=== PATIENT | male | born 1965 | race African-American/Black ===

== ENCOUNTER 2018-05-19 08:32 | Inpatient (IN) | payer OTHER ==
[2018-05-19 09:04] VITALS: BMI 24.8
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
[2018-05-19] MEDS ORDERED: MAGNESIUM CITRATE 300 ML BOTTLE PO PRN (11:04)
[2018-05-19] MEDS ORDERED: MAG HYDROX/AL HYDROX/SIMETH 30 ML UNIT-DOSE CUP PO PRN (11:04)
[2018-05-19] MEDS ORDERED: NICOTINE POLACRILEX 2 MG GUM BUC PRN (11:04)
[2018-05-19] MEDS ORDERED: IBUPROFEN 400 MG TABLET (FP) PO PRN (11:04)
[2018-05-19] MEDS ORDERED: ACETAMINOPHEN 325 MG TABLET (FP) PO PRN (11:04)
[2018-05-19] MEDS ORDERED: MENTHOL/PHENOL 1 EACH UD MM PRN (11:04)
[2018-05-19] MEDS ORDERED: guaiFENesin/D-METHORPHAN HB 10 ML UNIT-DOSE CUPS PO PRN (11:04)
[2018-05-19] MEDS ORDERED: MAGNESIUM HYDROX 2400MG/30ML ORAL SUSPENSION 30 ML CUP PO PRN (11:04)
[2018-05-19] MEDS ORDERED: ALBUTEROL SO4 8 GM HFA INHALER IH PRN (11:07)
[2018-05-19] MEDS ORDERED: ALBUTEROL SO4 0.083% IH SOL 2.5 MG/3 ML VIAL.NEB. NEB PRN (11:09)
[2018-05-19] MEDS: diazePAM 5 MG TABLET PO PRN ×2 (12:37→16:30)
[2018-05-19] MEDS: predniSONE 20 MG TABLET (UD) PO SCH (12:40)
[2018-05-19] MEDS: ALBUTEROL SO4 8 GM HFA INHALER IH PRN ×2 (12:41→20:42)
[2018-05-19] MEDS: diazePAM 5 MG TABLET PO SCH ×2 (15:03→22:18)
[2018-05-19] MEDS: MELATONIN 5 MG TABLETS PO PRN (22:18)
[2018-05-19] MEDS: THIAMINE HCL 100 MG TABLET (FP) PO SCH (22:18)
[2018-05-19] MEDS: P-EPHED 60MG/TRIPROLIDI 2.5MG TABLET PO PRN (23:18)
[2018-05-20] MEDS: diazePAM 5 MG TABLET PO SCH ×3 (06:09→22:11)
[2018-05-20] MEDS: predniSONE 20 MG TABLET (UD) PO SCH (09:13)
[2018-05-20] MEDS: PRENATAL VITAMINS W/ FOLIC ACID TABLET (FP) PO SCH (09:14)
[2018-05-20] MEDS: AZITHROMYCIN 250 MG TABLET PO SCH (09:14)
[2018-05-20 10:17] LABS: HEMATOCRIT 42.5 % (35.4-49); HEMOGLOBIN 13.8 GM/dL (11.7-16.9); MCH 32.9 pg (25.7-33.7); MCHC 32.4 g/dl (32.0-35.9); MEAN CELL VOLUME 101.3 fl (80-96); MEAN PLT VOLUME 7.7 fl (7.5-11.1); PLATELET COUNT 291 K/MM3 (134-434); RDW 13.7 % (11.9-15.9); WHITE BLOOD COUNT 7.1 K/mm3 (4.0-10.0)
[2018-05-20 11:07] LABS: ALBUMIN 4.1 g/dl (3.4-5.0); ALK PHOS 86 U/L (45-117); ANION GAP 8 MMOL/L (8-16); BILIRUBIN,TOTAL 1.4 mg/dL (0.2-1); BLOOD UREA NITROGEN 18 mg/dL (7-18); CHLORIDE 103 mmol/L (98-107); CO2 29 mmol/L (21-32); CREATININE 1.1 mg/dL (0.55-1.3); GLUCOSE,RANDOM 95 mg/dL (74-106); POTASSIUM 4.1 mmol/L (3.5-5.1); SGOT/AST 34 U/L (15-37); SGPT/ALT 33 U/L (13-61); SODIUM 140 mmol/L (136-145); TOT PROT 7.6 g/dl (6.4-8.2)
--- NOTE | 2018-05-20 11:54 | PN ---
S CIWA - CIWA Score Nausea/Vomitin-No Nausea/No Vomiting Muscle Tremors: 3 Anxiety: 4-Mod. Anxious/Guarded Agitation: 3 Paroxysmal Sweats: 3 Orientation: 0-Oriented Tacttile Disturbances: 0-None Auditory Disturbances: 0-None Visual Disturbances: 0-None Headache: 0-None Present CIWA-Ar Total Score: 13 BHS Progress Note (SOAP) Subjective: ANXIETY, COLD SWEATS, INTERMITTENT SLEEP. Objective: 05/20/18 11:54 Vital Signs 05/20/18 05/20/18 06:07 09:52 Temperature 97.7 F 98.7 F Pulse Rate 61 69 Respiratory 18 18 Rate Blood Pressure 138/79 109/67 Laboratory Tests 05/19/18 05/20/18 05/20/18 12:30 05:50 05:50 WBC 7.1 RBC 4.20 Hgb 13.8 Hct 42.5 MCV 101.3 H MCH 32.9 MCHC 32.4 RDW 13.7 Plt Count 291 D MPV 7.7 Sodium 140 Potassium 4.1 Chloride 103 Carbon Dioxide 29 Anion Gap 8 BUN 18 Creatinine 1.1 Creat Clearance w eGFR > 60 Random Glucose 95 Calcium 9.0 Total Bilirubin 1.4 H AST 34 ALT 33 Alkaline Phosphatase 86 Total Protein 7.6 Albumin 4.1 RPR Titer HIV 1&2 Antibody Screen Negative HIV P24 Antigen Negative 05/20/18 05:50 WBC RBC Hgb Hct MCV MCH MCHC RDW Plt Count MPV Sodium Potassium Chloride Carbon Dioxide Anion Gap BUN Creatinine Creat Clearance w eGFR Random Glucose Calcium Total Bilirubin AST ALT Alkaline Phosphatase Total Protein Albumin RPR Titer Nonreactive HIV 1&2 Antibody Screen HIV P24 Antigen Assessment: 05/20/18 11:54 WITHDRAWAL SX Plan: CONTINUE DETOX INCREASE PO FLUIDS
[2018-05-20] MEDS: diazePAM 5 MG TABLET PO PRN ×2 (14:12→18:06)
[2018-05-20] MEDS: P-EPHED 60MG/TRIPROLIDI 2.5MG TABLET PO PRN (18:08)
[2018-05-20] MEDS: ALBUTEROL SO4 8 GM HFA INHALER IH PRN (18:08)
[2018-05-20] MEDS: THIAMINE HCL 100 MG TABLET (FP) PO SCH (22:10)
[2018-05-20] MEDS: MELATONIN 5 MG TABLETS PO PRN (22:12)
[2018-05-21] MEDS: diazePAM 5 MG TABLET PO PRN ×4 (06:42→22:17)
[2018-05-21] MEDS: ALBUTEROL SO4 8 GM HFA INHALER IH PRN ×2 (06:43→22:18)
[2018-05-21] MEDS ORDERED: diazePAM 5 MG TABLET PO SCH (10:00)
[2018-05-21] MEDS: PRENATAL VITAMINS W/ FOLIC ACID TABLET (FP) PO SCH (10:30)
[2018-05-21] MEDS: AZITHROMYCIN 250 MG TABLET PO SCH (10:30)
[2018-05-21] MEDS: predniSONE 20 MG TABLET (UD) PO SCH (10:30)
--- NOTE | 2018-05-21 13:50 | PN ---
S CIWA - CIWA Score Nausea/Vomitin-No Nausea/No Vomiting Muscle Tremors: 2 Anxiety: 2 Agitation: 2 Paroxysmal Sweats: 2 Orientation: 0-Oriented Tacttile Disturbances: 0-None Auditory Disturbances: 0-None Visual Disturbances: 0-None Headache: 0-None Present CIWA-Ar Total Score: 8 BHS Progress Note (SOAP) Subjective: Anxious, restless Objective: 05/21/18 13:47 Last Vital Signs Temp Pulse Resp BP Pulse Ox 96.2 F L 76 18 116/79 05/21/18 11:01 05/21/18 11:01 05/21/18 11:01 05/21/18 11:01 Laboratory Tests 05/19/18 05/20/18 05/20/18 12:30 05:50 05:50 WBC 7.1 RBC 4.20 Hgb 13.8 Hct 42.5 MCV 101.3 H MCH 32.9 MCHC 32.4 RDW 13.7 Plt Count 291 D MPV 7.7 Sodium 140 Potassium 4.1 Chloride 103 Carbon Dioxide 29 Anion Gap 8 BUN 18 Creatinine 1.1 Creat Clearance w eGFR > 60 Random Glucose 95 Calcium 9.0 Total Bilirubin 1.4 H AST 34 ALT 33 Alkaline Phosphatase 86 Total Protein 7.6 Albumin 4.1 RPR Titer HIV 1&2 Antibody Screen Negative HIV P24 Antigen Negative 05/20/18 05:50 WBC RBC Hgb Hct MCV MCH MCHC RDW Plt Count MPV Sodium Potassium Chloride Carbon Dioxide Anion Gap BUN Creatinine Creat Clearance w eGFR Random Glucose Calcium Total Bilirubin AST ALT Alkaline Phosphatase Total Protein Albumin RPR Titer Nonreactive HIV 1&2 Antibody Screen HIV P24 Antigen Labs reviewed Assessment: 05/21/18 13:47 Withdrawal symptoms Plan: Continue detox Encouraged PO water intake Patient can be discharged Tuesday or Tuesday Patient only had 3 days detox protocol and now on prn, encouraged to take prn for withdrawal symptoms
[2018-05-21] MEDS: THIAMINE HCL 100 MG TABLET (FP) PO SCH (22:16)
[2018-05-21] MEDS: P-EPHED 60MG/TRIPROLIDI 2.5MG TABLET PO PRN (22:19)
[2018-05-22] MEDS: ALBUTEROL SO4 8 GM HFA INHALER IH PRN (07:27)
--- NOTE | 2018-05-22 09:05 | DS ---
[facility] Detox Discharge Summary Admission Date: 05/19/18 Discharge Date: 05/22/18 - History Present History: Alcohol Dependence Additional Comments: 53 years old male admitted on 05/19/18 for alcohol withdrawal stabilization completed detox regimen tolerated [facility] - Physical Exam Results Vital Signs: Vital Signs Temperature 98.2 F 05/22/18 06:27 Pulse Rate 67 05/22/18 06:27 Respiratory Rate 18 05/22/18 06:27 Blood Pressure 121/82 05/22/18 06:27 O2 Sat by Pulse Oximetry (%) Pertinent Admission Physical Exam Findings: alcohol withdrawal sx Vital Signs Temperature 96.7 F L 05/22/18 09:17 Pulse Rate 83 05/22/18 09:17 Respiratory Rate 18 05/22/18 09:17 Blood Pressure 128/88 05/22/18 09:17 O2 Sat by Pulse Oximetry (%) Laboratory Last Values WBC 7.1 K/mm3 (4.0-10.0) 05/20/18 05:50 RBC 4.20 M/mm3 (4.00-5.60) 05/20/18 05:50 Hgb 13.8 GM/dL (11.7-16.9) 05/20/18 05:50 Hct 42.5 % (35.4-49) 05/20/18 05:50 MCV 101.3 fl (80-96) H 05/20/18 05:50 MCH 32.9 pg (25.7-33.7) 05/20/18 05:50 MCHC 32.4 g/dl (32.0-35.9) 05/20/18 05:50 RDW 13.7 % (11.9-15.9) 05/20/18 05:50 Plt Count 291 K/MM3 (134-434) D 05/20/18 05:50 MPV 7.7 fl (7.5-11.1) 05/20/18 05:50 Sodium 140 mmol/L (136-145) 05/20/18 05:50 Potassium 4.1 mmol/L (3.5-5.1) 05/20/18 05:50 Chloride 103 mmol/L (98-107) 05/20/18 05:50 Carbon Dioxide 29 mmol/L (21-32) 05/20/18 05:50 Anion Gap 8 MMOL/L (8-16) 05/20/18 05:50 BUN 18 mg/dL (7-18) 05/20/18 05:50 Creatinine 1.1 mg/dL (0.55-1.3) 05/20/18 05:50 Creat Clearance w eGFR > 60 (>60) 05/20/18 05:50 Random Glucose 95 mg/dL (74-106) 05/20/18 05:50 Calcium 9.0 mg/dL (8.5-10.1) 05/20/18 05:50 Total Bilirubin 1.4 mg/dL (0.2-1) H 05/20/18 05:50 AST 34 U/L (15-37) 05/20/18 05:50 ALT 33 U/L (13-61) 05/20/18 05:50 Alkaline Phosphatase 86 U/L (45-117) 05/20/18 05:50 Total Protein 7.6 g/dl (6.4-8.2) 05/20/18 05:50 Albumin 4.1 g/dl (3.4-5.0) 05/20/18 05:50 RPR Titer Nonreactive (NONREACTIVE) 05/20/18 05:50 HIV 1&2 Antibody Screen Negative 05/19/18 12:30 HIV P24 Antigen Negative 05/19/18 12:30 lab noted - Treatment Hospital Course: Detox Protocol Followed, Detoxed Safely, Responded well, Discharged Condition Good, Rehab Referral Accepted Patient has Accepted a Rehab Referral to: [facility] - Medication Discharge Medications: Ambulatory Orders Ibuprofen [Motrin -] 400 mg PO TID PRN 05/19/18 Albuterol Sulfate Inhaler - [Ventolin HFA Inhaler -] 2 inhaler IN PRN PRN #1 inhaler 05/22/18 Azithromycin 250 mg PO DAILY #7 tablet 05/22/18 predniSONE [Deltasone -] 40 mg PO DAILY 3 Days #1 tablet 05/22/18 - Diagnosis (1) Alcohol dependence, episodic drinking behavior Current Visit: Yes Status: Acute (2) Nicotine dependence Current Visit: Yes Status: Acute Qualifiers: Nicotine product type: cigarettes Substance use status: in withdrawal Qualified Code(s): F17.213 - Nicotine dependence, cigarettes, with withdrawal - AMA Did Patient Leave Against Medical Advice: No
[2018-05-22 09:18] VITALS: BP 128/88; PULSE 83; TEMP 96.7
== END 2018-05-22 09:20 | disposition home or self-care (01) | DRG 774 ==
LOC: YASAS 08:32 → Y3N 11:24
PROC: HZ2ZZZZ Detoxification Services for Substance Abuse Treatment (ICD-10-PCS; principal; 2018-05-19)
DX: F10.230 Alcohol dependence with withdrawal, uncomplicated (principal); F14.20 Cocaine dependence, uncomplicated; F12.20 Cannabis dependence, uncomplicated; F17.213 Nicotine dependence, cigarettes, with withdrawal; F32.9 Major depressive disorder, single episode, unspecified; F41.9 Anxiety disorder, unspecified; J45.909 Unspecified asthma, uncomplicated
CPT/HCPCS: 36415; 80053; 85027; 86593; 87389

== ENCOUNTER 2018-08-24 08:00 | Inpatient (IN) | payer OTHER ==
[2018-08-24 08:41] VITALS: BMI 25.1
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
[2018-08-24] MEDS ORDERED: NICOTINE POLACRILEX 2 MG GUM BUC PRN (09:59)
[2018-08-24] MEDS ORDERED: MAGNESIUM CITRATE 300 ML BOTTLE PO PRN (09:59)
[2018-08-24] MEDS ORDERED: guaiFENesin 200 MG/10 ML 10 ML UNIT-DOSE CUPS PO PRN (09:59)
[2018-08-24] MEDS ORDERED: MAGNESIUM HYDROX 2400MG/30ML ORAL SUSPENSION 30 ML CUP PO PRN (09:59)
[2018-08-24] MEDS ORDERED: MAG HYDROX/AL HYDROX/SIMETH 30 ML UNIT-DOSE CUP PO PRN (09:59)
[2018-08-24] MEDS ORDERED: ACETAMINOPHEN 325 MG TABLET (FP) PO PRN (09:59)
[2018-08-24] MEDS ORDERED: MENTHOL/PHENOL 1 EACH UD MM PRN (09:59)
[2018-08-24] MEDS ORDERED: LOPERAMIDE HCL 2 MG CAPSULE PO PRN (09:59)
[2018-08-24] MEDS ORDERED: P-EPHED 60MG/TRIPROLIDI 2.5MG TABLET PO PRN (09:59)
[2018-08-24] MEDS: PRENATAL VITAMINS W/ FOLIC ACID TABLET (FP) PO SCH (12:17)
[2018-08-24 13:50] LABS: HEMATOCRIT 41.1 % (35.4-49); MCH 35.1 pg (25.7-33.7); MCHC 34.2 g/dl (32.0-35.9); MEAN CELL VOLUME 102.6 fl (80-96); MEAN PLT VOLUME 7.4 fl (7.5-11.1); PLATELET COUNT 225 K/MM3 (134-434)
[2018-08-24 13:57] LABS: ALBUMIN 4.2 g/dl (3.4-5.0); ALK PHOS 73 U/L (45-117); ANION GAP 0 MMOL/L (8-16); BILIRUBIN,TOTAL 1.5 mg/dL (0.2-1); BLOOD UREA NITROGEN 9 mg/dL (7-18); CALCIUM 8.6 mg/dL (8.5-10.1); CHLORIDE 104 mmol/L (98-107); CO2 33 mmol/L (21-32); CREATININE 0.8 mg/dL (0.55-1.3); GLUCOSE,RANDOM 96 mg/dL (74-106); POTASSIUM 4.1 mmol/L (3.5-5.1); SGOT/AST 51 U/L (15-37); SGPT/ALT 39 U/L (13-61); SODIUM 137 mmol/L (136-145); TOT PROT 7.2 g/dl (6.4-8.2)
[2018-08-24] MEDS: cloNIDine HCL 0.1 MG TABLET PO PRN ×2 (14:30→21:45)
--- NOTE | 2018-08-24 14:33 | PN ---
S Progress Note Note: Patient with swelling of right knee. States he fell on the sidewalk about a week ago. Went to the ER and was evaluated; informed that he had a sprain of the right knee. PE: right knee with some swelling; weight bearing, but favoring the right knee when walking. Slight tenderness on palpation. + pulses-popliteal and ankle. PLAN: Continue with ELLA wrap, motrin as needed.
[2018-08-24 16:47] LABS: URINE APPEARANCE CLEAR; URINE BILIRUBIN NEGATIVE (NEGATIVE); URINE COLOR YELLOW; URINE GLUCOSE (UA) NEGATIVE (NEGATIVE); URINE KETONE NEGATIVE (NEGATIVE); URINE LEUK ESTERASE NEGATIVE (NEGATIVE); URINE NITRITE NEGATIVE (NEGATIVE); URINE PROTEIN NEGATIVE (NEGATIVE)
[2018-08-24] MEDS: IBUPROFEN 400 MG TABLET (FP) PO PRN (17:40)
[2018-08-24] MEDS: THIAMINE HCL 100 MG TABLET (FP) PO SCH (21:41)
[2018-08-24] MEDS: CYCLOBENZAPRINE HCL 5 MG TABLET PO PRN (21:41)
[2018-08-24] MEDS ORDERED: MELATONIN 5 MG TABLETS PO PRN (22:00)
[2018-08-25] MEDS: IBUPROFEN 400 MG TABLET (FP) PO PRN ×2 (08:21→17:05)
[2018-08-25] MEDS: cloNIDine HCL 0.1 MG TABLET PO PRN ×2 (08:21→21:51)
[2018-08-25] MEDS: PRENATAL VITAMINS W/ FOLIC ACID TABLET (FP) PO SCH (10:29)
[2018-08-25] MEDS: CYCLOBENZAPRINE HCL 5 MG TABLET PO PRN ×2 (12:45→21:51)
[2018-08-25] MEDS ORDERED: ALBUTEROL SO4 8 GM HFA INHALER IH PRN (12:47)
[2018-08-25] MEDS: hydrOXYzine PAMOATE 50 MG CAPSULE (FP) PO PRN (17:05)
[2018-08-25] MEDS: THIAMINE HCL 100 MG TABLET (FP) PO SCH (21:51)
[2018-08-26] MEDS: hydrOXYzine PAMOATE 50 MG CAPSULE (FP) PO PRN ×2 (06:13→21:32)
[2018-08-26] MEDS: IBUPROFEN 400 MG TABLET (FP) PO PRN (06:13)
[2018-08-26] MEDS: CYCLOBENZAPRINE HCL 5 MG TABLET PO PRN ×2 (06:13→21:32)
[2018-08-26] MEDS: PRENATAL VITAMINS W/ FOLIC ACID TABLET (FP) PO SCH (10:10)
[2018-08-26] MEDS: cloNIDine HCL 0.1 MG TABLET PO PRN (21:32)
[2018-08-26] MEDS: THIAMINE HCL 100 MG TABLET (FP) PO SCH (21:32)
[2018-08-27] MEDS: IBUPROFEN 400 MG TABLET (FP) PO PRN (05:53)
[2018-08-27] MEDS: CYCLOBENZAPRINE HCL 5 MG TABLET PO PRN ×2 (09:35→22:12)
[2018-08-27] MEDS: PRENATAL VITAMINS W/ FOLIC ACID TABLET (FP) PO SCH (09:35)
[2018-08-27] MEDS: hydrOXYzine PAMOATE 50 MG CAPSULE (FP) PO PRN ×3 (09:35→22:12)
[2018-08-27] MEDS: cloNIDine HCL 0.1 MG TABLET PO PRN ×2 (09:35→22:12)
[2018-08-27] MEDS: THIAMINE HCL 100 MG TABLET (FP) PO SCH (22:01)
[2018-08-28 07:21] VITALS: BP 131/87; PULSE 65; TEMP 98.3
[2018-08-28] MEDS: PRENATAL VITAMINS W/ FOLIC ACID TABLET (FP) PO SCH (10:26)
--- NOTE | 2018-08-28 10:33 | PN ---
[facility] Progress Note Note: PATIENT REQUESTED TO SIGN OUT AMA. PATIENT INFORMED DIFFERENTIAL SPECIALIST " MY IS LEAVING DETOX SO I WANT TO GO". PATIENT ENCOURAGED TO STAY IN TREATMENT AND INFORMED OF RISK FACTORS OF RELAPSE WITH SIGNING OUT AMA. PATIENT REFUSED TO STAY IN TREATMENT AND CONTINUED WITH AMA PROCESS. PATIENT HAS ALBUTEROL INHALER IN BELONGINGS AND DOES NOT NEED REFILL. PATIENT ENCOURAGED TO ATTEND GROUP MEETINGS AND TO FOLLOW UP WITH PCP TO CONTINUE MEDICAL MANAGEMENT. Vital Signs Temperature 98.3 F 08/28/18 07:20 Pulse Rate 65 08/28/18 07:20 Respiratory Rate 16 08/28/18 07:20 Blood Pressure 131/87 08/28/18 07:20 O2 Sat by Pulse Oximetry (%) Ambulatory Orders Albuterol Sulfate Inhaler - [Ventolin HFA Inhaler -] 2 inhaler IN PRN PRN #1 inhaler 05/22/18 predniSONE [Deltasone -] 40 mg PO DAILY 3 Days #1 tablet 05/22/18 Laboratory Tests 08/24/18 08/24/18 08/24/18 10:00 10:00 10:00 WBC 6.0 RBC 4.00 Hgb 14.0 Hct 41.1 MCV 102.6 H MCH 35.1 H MCHC 34.2 RDW 13.0 Plt Count 225 D MPV 7.4 L Sodium 137 Potassium 4.1 Chloride 104 Carbon Dioxide 33 H Anion Gap 0 L BUN 9 Creatinine 0.8 Creat Clearance w eGFR 101.92 Random Glucose 96 Calcium 8.6 Total Bilirubin 1.5 H AST 51 H ALT 39 Alkaline Phosphatase 73 Total Protein 7.2 Albumin 4.2 Urine Color Urine Appearance Urine pH Ur Specific [place] Urine Protein Urine Glucose (UA) Urine Ketones Urine Blood Urine Nitrite Urine Bilirubin Urine Urobilinogen Ur Leukocyte Esterase RPR Titer HIV 1&2 Antibody Screen Negative HIV P24 Antigen Negative 08/24/18 08/24/18 10:00 15:18 WBC RBC Hgb Hct MCV MCH MCHC RDW Plt Count MPV Sodium Potassium Chloride Carbon Dioxide Anion Gap BUN Creatinine Creat Clearance w eGFR Random Glucose Calcium Total Bilirubin AST ALT Alkaline Phosphatase Total Protein Albumin Urine Color Yellow Urine Appearance Clear Urine pH 7.0 Ur Specific [place] 1.002 L Urine Protein Negative Urine Glucose (UA) Negative Urine Ketones Negative Urine Blood Negative Urine Nitrite Negative Urine Bilirubin Negative Urine Urobilinogen 1.0 Ur Leukocyte Esterase Negative RPR Titer Nonreactive HIV 1&2 Antibody Screen HIV P24 Antigen
--- NOTE | 2018-08-28 10:40 | EKG ---
Test Reason : Blood Pressure : / mmHG Vent. Rate : 066 BPM Atrial Rate : 066 BPM P-R Int : 134 ms QRS Dur : 088 ms QT Int : 386 ms P-R-T Axes : 027 056 052 degrees QTc Int : 404 ms NORMAL SINUS RHYTHM NORMAL ECG NO PREVIOUS ECGS AVAILABLE Confirmed by FINESSE BURGOS, HAWA ([id number]) on 08/28/2018 10:40:15 AM Referred By: Rambo MARIE Confirmed By:HWAA KILPATRICK MD
== END 2018-08-28 10:30 | disposition left against medical advice (07) | DRG 770 ==
LOC: YASAS 08:00 → UNDOADMIN 10:26 → Y3N 10:26 → Y3W 10:39
PROVIDERS: ADMIT Neuromusculoskeletal Medicine & OMM; ATTEND Neuromusculoskeletal Medicine & OMM
PROC: HZ42ZZZ Group Counseling for Substance Abuse Treatment, Cognitive-Behavioral (ICD-10-PCS; principal; 2018-08-24)
DX: F10.20 Alcohol dependence, uncomplicated (principal); F14.20 Cocaine dependence, uncomplicated; F17.210 Nicotine dependence, cigarettes, uncomplicated; F31.9 Bipolar disorder, unspecified; F41.8 Other specified anxiety disorders; J45.909 Unspecified asthma, uncomplicated; Z87.828 Personal history of other (healed) physical injury and trauma
CPT/HCPCS: 36415; 71046-TC-FY; 80053; 81003; 85027; 86593; 87389; 93005; 93010; J0735